=== PATIENT | female | born 1950 | race Caucasian/White ===

== ENCOUNTER 2017-12-02 09:58 | Emergency (ER) | payer MEDICARE ==
[2017-12-02 11:33] LABS: Hematocrit 33.6 % (30.3-42.9); Hemoglobin 10.8 gm/dl (10.1-14.3); Mean Corpuscular HGB Conc 32 % (30-34); Mean Corpuscular Hemoglobin 28 pg (28-32); Mean Corpuscular Volume 87 fl (79-97); Platelet Count 271 K/mm3 (140-440); Red Blood Count 3.86 M/mm3 (3.65-5.03); Red Cell Distribution Width 14.9 % (13.2-15.2)
[2017-12-02 11:41] LABS: BUN/Creatinine Ratio 15; Blood Urea Nitrogen 18 mg/dL (7-17); Calcium 9.5 mg/dL (8.4-10.2); Hemolysis Index 34
--- NOTE | 2017-12-02 12:23 | XRay Report ---
CHEST XRAY, 2 VIEWS: History: Short of breath. Findings: There is mild cardiomegaly. Pulmonary vessels are within normal limits. The lungs are clear and fully expanded. No infiltrate, pleural effusion or pneumothorax. Normal thoracic cage. IMPRESSION: Mild cardiomegaly.
[2017-12-02 13:32] LABS: Total Cells Counted 100
[2017-12-02 13:33] LABS: Large Platelets Few; Platelet Estimate Cons; RBC Morphology Normal
[2017-12-02] MEDS ORDERED: PROVENTIL IH ONE ×2 (15:34→16:27)
[2017-12-02] MEDS ORDERED: ATROVENT IH ONE (15:34)
[2017-12-02] MEDS ORDERED: DELTASONE PO ONE (15:35)
--- NOTE | 2017-12-02 16:41 | Emergency Department Report ---
ED Shortness of Breath HPI - General Chief Complaint: Dyspnea/Respdistress Stated Complaint: SHORTNESS OF BREATH Time Seen by Provider: 12/02/17 15:12 Source: patient, family, old records reviewed (patient had a cardiac cath done in 04/19 with normal coronary arteries and nonischemic cardiomyopathy with ejection fraction of less than 15%. Patient also had mild pulmonary hypertension) Mode of arrival: Ambulatory Limitations: Language Barrier - History of Present Illness Initial Comments: 67-year-old female with a past medical history CHF and hypertension presents to the hospital complaints of shortness of breath and chest tightness since last night. Patient states she feels tightness when she tries to take a deep breath. Mild productive cough reported without fever, calf tenderness, recent travel, history of PE/DVT, edema, nausea, vomiting, or diaphoresis. Patient obviously somewhat pillow but this nice had to sleep sitting up because she could not breathe lying flat. She has been compliant with all her medications including diuretics. Patient does not smoke cigarettes and denies history of previous lung disease. Her process improvement specialist is Dr. Garcia - Related Data Home Medications Medication Instructions Recorded Confirmed Last Taken Furosemide [Lasix TAB] 20 mg PO QDAY 04/03/15 04/03/15 Unknown Omeprazole [PriLOSEC] 40 mg PO QDAY 04/03/15 04/03/15 Unknown Previous Rx's Medication Instructions Recorded Last Taken Type Carvedilol [Coreg] 6.25 mg PO BID #60 tablet 04/08/15 Unknown Rx Furosemide [Lasix TAB] 20 mg PO QDAY #30 tablet 04/08/15 Unknown Rx Lisinopril [Zestril TAB] 10 mg PO QDAY #30 tablet 04/08/15 Unknown Rx Simvastatin [Zocor TAB] 20 mg PO QHS #30 tablet 04/08/15 Unknown Rx Zolpidem [Ambien] 5 mg PO QHS PRN #10 tablet 04/08/15 Unknown Rx ALBUTEROL Inhaler [ProAir HFA 2 puff IH QID PRN #1 inhalation 12/02/17 Unknown Rx Inhaler] Inhaler, Assist Devices [Space 1 each MC PRN #1 spacer 12/02/17 Unknown Rx Chamber Plus] Prednisone [predniSONE 10 mg 10 mg PO .TAPER #1 tab.ds.pk 12/02/17 Unknown Rx (6-Day Pack, 21 Tabs)] Allergies Allergy/AdvReac Type Severity Reaction Status Date / Time No Known Allergies Allergy Verified 12/02/17 10:36 ED Review of Systems ROS: Stated complaint: SHORTNESS OF BREATH Other details as noted in HPI Comment: All other systems reviewed and negative ED Past Medical Hx - Past Medical History Hx Hypertension: Yes Hx Congestive Heart Failure: Yes - Surgical History Past Surgical History?: No - Social History Smoking Status: Never Smoker Substance Use Type: None - Medications Home Medications: Home Medications Medication Instructions Recorded Confirmed Last Taken Type Furosemide [Lasix TAB] 20 mg PO QDAY 04/03/15 04/03/15 Unknown History Omeprazole [PriLOSEC] 40 mg PO QDAY 04/03/15 04/03/15 Unknown History Carvedilol [Coreg] 6.25 mg PO BID #60 tablet 04/08/15 Unknown Rx Furosemide [Lasix TAB] 20 mg PO QDAY #30 tablet 04/08/15 Unknown Rx Lisinopril [Zestril TAB] 10 mg PO QDAY #30 tablet 04/08/15 Unknown Rx Simvastatin [Zocor TAB] 20 mg PO QHS #30 tablet 04/08/15 Unknown Rx Zolpidem [Ambien] 5 mg PO QHS PRN #10 tablet 04/08/15 Unknown Rx ALBUTEROL Inhaler [ProAir HFA 2 puff IH QID PRN #1 inhalation 12/02/17 Unknown Rx Inhaler] Inhaler, Assist Devices [Space 1 each MC PRN #1 spacer 12/02/17 Unknown Rx Chamber Plus] Prednisone [predniSONE 10 mg 10 mg PO .TAPER #1 tab.ds.pk 12/02/17 Unknown Rx (6-Day Pack, 21 Tabs)] ED Physical Exam - General Limitations: Language Barrier - Other Other exam information: General: No limitations, patient is alert in no acute distress Head exam: Atraumatic, normocephalic Eyes exam: Normal appearance ENT: Moist mucous membrane, normal oropharynx Neck exam: Normal inspection, full range of motion, no meningismus nontender Respiratory exam: No tachypnea or accessory muscle use. Fair air movement expiratory wheezing Cardiovascular: Normal rate and rhythm, normal heart sounds Abdomen: Soft, nondistended, and nontender, with normal bowel sounds, no rebound, or guarding Extremity: Full range of motion normal inspection no deformity, no calf tenderness or edema Back: Normal Inspection, full range of motion, no tenderness Neurologic: Alert, oriented x3, cranial nerves intact, no motor or sensory deficit Psychiatric: normal affect, normal mood Skin: Warm, dry, intact ED Course Vital Signs 12/02/17 12/02/17 12/02/17 10:33 14:57 15:47 Temperature 97.8 F 97.5 F L Pulse Rate 66 67 Respiratory 20 20 Rate Blood Pressure 116/63 132/58 121/66 O2 Sat by Pulse 95 98 99 Oximetry 12/02/17 16:00 Temperature Pulse Rate Respiratory Rate Blood Pressure 118/56 O2 Sat by Pulse 100 Oximetry - Reevaluation(s) Reevaluation #1: 12/02/17 19:25 States she had a lot of improvement in her breathing after receiving albuterol 5 and Atrovent 1 mg. She also received prednisone 60 mg by mouth. Initial peak flow 225. After mentioned nebulized treatments he flow increased to 260. Additional 5 mg of albuterol provided with further improvement in her respiratory symptoms patient states she is feeling a lot better. Awaiting CT report at this time - Consultations Consultation #1: 12/02/17 17:[address] Gracia. Her process improvement specialist. He is very made with the patient and states that she does not have any known coronary artery disease and has a nonischemic cardiomyopathy 12/02/17 19:31 DR Garcia informed of CTA result and dispo plan. Will follow ED Medical Decision Making - Lab Data Result diagrams: 12/02/17 11:11 12/02/17 16:50 Lab Results 12/02/17 12/02/17 12/02/17 Range/Units 11:11 11:11 16:28 WBC 8.2 (4.5-11.0) K/mm3 RBC 3.86 (3.65-5.03) M/mm3 Hgb 10.8 (10.1-14.3) gm/dl Hct 33.6 (30.3-42.9) % MCV 87 (79-97) fl MCH 28 (28-32) pg MCHC 32 (30-34) % RDW 14.9 (13.2-15.2) % Plt Count 271 (140-440) K/mm3 Add Manual Diff Complete Total Counted 100 Seg Neuts % (Manual) 53.0 (40.0-70.0) % Band Neutrophils % 0 % Lymphocytes % (Manual) 21.0 (13.4-35.0) % Reactive Lymphs % (Man) 3.0 % Monocytes % (Manual) 3.0 (0.0-7.3) % Eosinophils % (Manual) 18.0 H (0.0-4.3) % Basophils % (Manual) 2.0 H (0.0-1.8) % Metamyelocytes % 0 % Myelocytes % 0 % Promyelocytes % 0 % Blast Cells % 0 % Nucleated RBC % 1.0 H (0.0-0.9) % Seg Neutrophils # Man 4.3 (1.8-7.7) K/mm3 Band Neutrophils # 0.0 K/mm3 Lymphocytes # (Manual) 1.7 (1.2-5.4) K/mm3 Abs React Lymphs (Man) 0.2 K/mm3 Monocytes # (Manual) 0.2 (0.0-0.8) K/mm3 Eosinophils # (Manual) 1.5 H (0.0-0.4) K/mm3 Basophils # (Manual) 0.2 H (0.0-0.1) K/mm3 Metamyelocytes # 0.0 K/mm3 Myelocytes # 0.0 K/mm3 Promyelocytes # 0.0 K/mm3 Blast Cells # 0.0 K/mm3 WBC Morphology Not Reportable Hypersegmented Neuts Not Reportable Hyposegmented Neuts Not Reportable Hypogranular Neuts Not Reportable Smudge Cells Not Reportable Toxic Granulation Not Reportable Toxic Vacuolation Not Reportable Dohle Bodies Not Reportable Pelger-Huet Anomaly Not Reportable Pal Rods Not Reportable Platelet Estimate Cons Clumped Platelets Not Reportable Plt Clumps, EDTA Not Reportable Large Platelets Few Giant Platelets Not Reportable Platelet Satelliting Not Reportable Plt Morphology Comment Not Reportable RBC Morphology Normal Dimorphic RBCs Not Reportable Polychromasia Not Reportable Hypochromasia Not Reportable Poikilocytosis Not Reportable Anisocytosis Not Reportable Microcytosis Not Reportable Macrocytosis Not Reportable Spherocytes Not Reportable Pappenheimer Bodies Not Reportable Sickle Cells Not Reportable Target Cells Not Reportable Tear Drop Cells Not Reportable Ovalocytes Not Reportable Helmet Cells Not Reportable Hernandez-[place] Bodies Not Reportable [place] Rings Not Reportable [place] Cells Not Reportable Bite Cells Not Reportable Crenated Cell Not Reportable Elliptocytes Not Reportable Acanthocytes (Spur) Not Reportable Rouleaux Not Reportable Hemoglobin C Crystals Not Reportable Schistocytes Not Reportable Malaria parasites Not Reportable David Bodies Not Reportable Hem Pathologist Commnt No D-Dimer (0-234) ng/mlDDU Sodium 140 (137-145) mmol/L Potassium 5.3 H (3.6-5.0) mmol/L Chloride 102.1 (98-107) mmol/L Carbon Dioxide 24 (22-30) mmol/L Anion Gap 19 mmol/L BUN 18 H (7-17) mg/dL Creatinine 1.2 (0.7-1.2) mg/dL Estimated GFR 45 ml/min BUN/Creatinine Ratio 15 % Glucose 140 H (65-100) mg/dL Calcium 9.5 (8.4-10.2) mg/dL Troponin T < 0.010 (0.00-0.029) ng/mL NT-Pro-B Natriuret Pep 143.8 (0-900) pg/mL 12/02/17 12/02/17 Range/Units 16:50 17:11 WBC (4.5-11.0) K/mm3 RBC (3.65-5.03) M/mm3 Hgb (10.1-14.3) gm/dl Hct (30.3-42.9) % MCV (79-97) fl MCH (28-32) pg MCHC (30-34) % RDW (13.2-15.2) % Plt Count (140-440) K/mm3 Add Manual Diff Total Counted Seg Neuts % (Manual) (40.0-70.0) % Band Neutrophils % % Lymphocytes % (Manual) (13.4-35.0) % Reactive Lymphs % (Man) % Monocytes % (Manual) (0.0-7.3) % Eosinophils % (Manual) (0.0-4.3) % Basophils % (Manual) (0.0-1.8) % Metamyelocytes % % Myelocytes % % Promyelocytes % % Blast Cells % % Nucleated RBC % (0.0-0.9) % Seg Neutrophils # Man (1.8-7.7) K/mm3 Band Neutrophils # K/mm3 Lymphocytes # (Manual) (1.2-5.4) K/mm3 Abs React Lymphs (Man) K/mm3 Monocytes # (Manual) (0.0-0.8) K/mm3 Eosinophils # (Manual) (0.0-0.4) K/mm3 Basophils # (Manual) (0.0-0.1) K/mm3 Metamyelocytes # K/mm3 Myelocytes # K/mm3 Promyelocytes # K/mm3 Blast Cells # K/mm3 WBC Morphology Hypersegmented Neuts Hyposegmented Neuts Hypogranular Neuts Smudge Cells Toxic Granulation Toxic Vacuolation Dohle Bodies Pelger-Huet Anomaly Pal Rods Platelet Estimate Clumped Platelets Plt Clumps, EDTA Large Platelets Giant Platelets Platelet Satelliting Plt Morphology Comment RBC Morphology Dimorphic RBCs Polychromasia Hypochromasia Poikilocytosis Anisocytosis Microcytosis Macrocytosis Spherocytes Pappenheimer Bodies Sickle Cells Target Cells Tear Drop Cells Ovalocytes Helmet Cells Hernandez-Congers Bodies [place] Rings Kristopher Cells Bite Cells Crenated Cell Elliptocytes Acanthocytes (Spur) Rouleaux Hemoglobin C Crystals Schistocytes Malaria parasites David Bodies Hem Pathologist Commnt D-Dimer 640.96 H (0-234) ng/mlDDU Sodium (137-145) mmol/L Potassium 4.6 (3.6-5.0) mmol/L Chloride (98-107) mmol/L Carbon Dioxide (22-30) mmol/L Anion Gap mmol/L BUN (7-17) mg/dL Creatinine (0.7-1.2) mg/dL Estimated GFR ml/min BUN/Creatinine Ratio % Glucose (65-100) mg/dL Calcium (8.4-10.2) mg/dL Troponin T < 0.010 (0.00-0.029) ng/mL NT-Pro-B Natriuret Pep (0-900) pg/mL - EKG Data -: EKG Interpreted by Me EKG shows normal: sinus rhythm, axis (qrs 43), QRS complexes (qrsd 92), ST-T waves (no stemi/t inv) Rate: normal (63) - EKG Data When compared to previous EKG there are: no significant change - Radiology Data Radiology results: report reviewed CHEST XRAY, 2 VIEWS: History: Short of breath. Findings: There is mild cardiomegaly. Pulmonary vessels are within normal limits. The lungs are clear and fully expanded. No infiltrate, pleural effusion or pneumothorax. Normal thoracic cage. IMPRESSION: Mild cardiomegaly. FINDINGS: There is no evidence for pulmonary embolism in the main pulmonary artery, right and left pulmonary arteries or their major distributions. However, CT does not exclude distal pulmonary emboli. There is a 3.5 mm nodule in the lateral right upper lobe (axial image 47). Otherwise, the lung parenchyma are expanded and clear with no evidence for parenchymal infiltrates, congestion, or pleural effusion. There is no evidence for mediastinal, hilar, or axillary adenopathy. Cardiovascular structures are within normal limits. No evidence for ventricular chamber enlargement is seen. Images through the lung bases include the upper abdomen which show no abnormalities of the visualized abdominal viscera. Bony structures demonstrate no focal abnormalities. IMPRESSION: 1. no evidence for pulmonary embolism. 2. tiny nodule in the lateral right upper lobe which can be followed according to Fleischner criteria below - Medical Decision Making Patient has improvement in symptoms after receiving nebulized treatments and steroids. Wheezing has decreased. CT angiogram does not show any acute findings but she does have a pulmonary nodule and needs follow-up. Her process improvement specialist Dr. Garcia informed the patient will be discharged home with nebs and steroids and follow-up recommended Mild hyperkalemia improved with nebs. She does take diuretics but does not take potassium supplements. - Differential Diagnosis COPD, CHF, bronchitis, VT, PE Critical Care Time: No Critical care attestation.: If time is entered above; I have spent that time in minutes in the direct care of this critically ill patient, excluding procedure time. ED Disposition Clinical Impression: Acute bronchitis, Incidental lung nodule, > 3mm and < 8mm Disposition: DC-01 TO HOME OR SELFCARE Is pt being admited?: No Does the pt Need Aspirin: No Condition: Stable Instructions: Acute Bronchitis (ED) Additional Instructions: Take the medication as prescribed. Follow-up with your primary care doctor and process improvement specialist. The CAT scan shows a very small lung nodule that needs outpatient follow-up. Return if symptoms worsen as indicated by your discharge instructions Prescriptions: ALBUTEROL Inhaler [ProAir HFA Inhaler] 2 puff IH QID PRN #1 inhalation PRN Reason: Shortness Of Breath Inhaler, Assist Devices [Space Chamber Plus] 1 each MC PRN #1 spacer Prednisone [predniSONE 10 mg (6-Day Pack, 21 Tabs)] 10 mg PO .TAPER #1 tab.ds.pk Referrals: KAVEH NEVAREZ MD [Primary Care Provider] - 3-5 Days SHANTEL GARCIA MD [Staff Physician] - 3-5 Days Time of Disposition: 19:37
--- NOTE | 2017-12-02 19:30 | Cat Scan Report ---
FINAL REPORT EXAM: CT ANGIO CHEST HISTORY: SOB, elevated D-dimer TECHNIQUE: Enhanced CT of the chest at 2.5 mm axial intervals following a pulmonary embolism protocol. Coronal and sagittal imaging were also obtained. Coronal oblique MIP projections were obtained. Contrast: 100 ml of Omnipaque 350 given IV. PRIORS: None. FINDINGS: There is no evidence for pulmonary embolism in the main pulmonary artery, right and left pulmonary arteries or their major distributions. However, CT does not exclude distal pulmonary emboli. There is a 3.5 mm nodule in the lateral right upper lobe (axial image 47). Otherwise, the lung parenchyma are expanded and clear with no evidence for parenchymal infiltrates, congestion, or pleural effusion. There is no evidence for mediastinal, hilar, or axillary adenopathy. Cardiovascular structures are within normal limits. No evidence for ventricular chamber enlargement is seen. Images through the lung bases include the upper abdomen which show no abnormalities of the visualized abdominal viscera. Bony structures demonstrate no focal abnormalities. IMPRESSION: 1. no evidence for pulmonary embolism. 2. tiny nodule in the lateral right upper lobe which can be followed according to Fleischner criteria below FLEISCHNER SOCI[employer]Y GUIDELINES FOR MANAGEMENT OF SMALL PULMONARY NODULES DETECTED ON CT SCANS- Nodule Size Low Risk High Risk (mm) < 4 No F/U F/U CT 12 mos if unchanged no further F/U Note- Newly detected indeterminate nodule in persons 35 years or older Low-risk patient = Minimal or absent history of smoking and of other known risk factors High risk patient = History of smoking or other known risk factors
[2017-12-02 19:56] VITALS: BP 134/66
== END 2017-12-02 19:55 | disposition home or self-care (01) ==
LOC: ED 09:58
DX: J20.9 Acute bronchitis, unspecified (principal); J98.4 Other disorders of lung; I11.0 Hypertensive heart disease with heart failure; I50.9 Heart failure, unspecified
CPT/HCPCS: 36415; 71046; 71275; 80048; 83880; 84132; 84484; 85007; 85025; 85379; 93005; 93010; 94640; 99285; J7512; Q9967

== ENCOUNTER 2017-12-21 19:56 | Emergency (ER) | payer MEDICARE ==
[2017-12-21] MEDS ORDERED: PROVENTIL IH ONE ×4 (20:36→22:55)
[2017-12-21] MEDS ORDERED: ATROVENT IH ONE ×2 (20:37→20:49)
[2017-12-21] MEDS ORDERED: MAGNESIUM SULFATE 2GM/50ML 2 GM/50 ML BAG IV ONE (20:59)
[2017-12-21] MEDS ORDERED: SOLU-Medrol IV ONE (20:59)
--- NOTE | 2017-12-21 20:59 | Emergency Department Report ---
ED Shortness of Breath HPI - General Chief Complaint: Dyspnea/Respdistress Stated Complaint: RICO Time Seen by Provider: 12/21/17 20:16 Source: patient, family, RN notes reviewed Mode of arrival: Stretcher Limitations: Language Barrier - History of Present Illness Initial Comments: Patient declines formal bushwalking guide. Patient requested that her daughter translate for her. 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 Koch This is a 67-year-old female. The patient presents to the ER with cough, wheezing and shortness of breath. It started at 1:00. She is not making more definitive mucus. She is also experiencing epigastric discomfort with coughing. The epigastric discomfort has been on and off for the past few days. The patient and her daughter deny DVT, pulmonary embolus risk factors. The patient was seen at this hospital/emergency room last month for similar symptoms , and had an essentially negative CT and a gram of the chest for large pulmonary emboli. Patient denies lower extremity swelling, and dietary indiscretions. MD Complaint: shortness of breath, cough -: Gradual Improves With: rest, upright position Worsens With: lying flat, exertion Known History Of: COPD, congestive heart failure Treatments Prior to Arrival: none - Related Data Home Oxygen Therapy: No Home Medications Medication Instructions Recorded Confirmed Last Taken Furosemide [Lasix TAB] 20 mg PO QDAY 04/03/15 04/03/15 Unknown Omeprazole [PriLOSEC] 40 mg PO QDAY 04/03/15 04/03/15 Unknown Previous Rx's Medication Instructions Recorded Last Taken Type Carvedilol [Coreg] 6.25 mg PO BID #60 tablet 04/08/15 Unknown Rx Furosemide [Lasix TAB] 20 mg PO QDAY #30 tablet 04/08/15 Unknown Rx Lisinopril [Zestril TAB] 10 mg PO QDAY #30 tablet 04/08/15 Unknown Rx Simvastatin [Zocor TAB] 20 mg PO QHS #30 tablet 04/08/15 Unknown Rx Zolpidem [Ambien] 5 mg PO QHS PRN #10 tablet 04/08/15 Unknown Rx ALBUTEROL Inhaler [ProAir HFA 2 puff IH QID PRN #1 inhalation 12/02/17 Unknown Rx Inhaler] Inhaler, Assist Devices [Space 1 each MC PRN #1 spacer 12/02/17 Unknown Rx Chamber Plus] Prednisone [predniSONE 10 mg 10 mg PO .TAPER #1 tab.ds.pk 12/02/17 Unknown Rx (6-Day Pack, 21 Tabs)] Albuterol Sulfate [Albuterol 0.63% 0.63 mg IH Q4HR PRN #2 ml 12/21/17 Unknown Rx NEBS] Albuterol Sulfate [Proair 90 mcg IH Q4HR PRN #2 aer.pow.ba 12/21/17 Unknown Rx Respiclick] Ipratropium [place] [Atrovent Hfa] 12.9 gm IH Q4HR #2 hfa.aer.ad 12/21/17 Unknown Rx Ipratropium [Atrovent NEB] 0.5 mg IH Q4HR #2 ml 12/21/17 Unknown Rx predniSONE [Deltasone] 40 mg PO QDAY #8 tab 12/21/17 Unknown Rx Allergies Allergy/AdvReac Type Severity Reaction Status Date / Time No Known Allergies Allergy Verified 12/02/17 10:36 ED Review of Systems ROS: Stated complaint: RICO Other details as noted in HPI Constitutional: denies: fever Eyes: denies: eye discharge Respiratory: see HPI, shortness of breath, wheezing Cardiovascular: denies: chest pain Gastrointestinal: denies: vomiting Genitourinary: as per HPI Musculoskeletal: as per HPI Skin: as per HPI Neurological: as per HPI Psychiatric: as per HPI ED Past Medical Hx - Past Medical History Hx Hypertension: Yes Hx Congestive Heart Failure: Yes Hx COPD: Yes Additional medical history: Cardiomyopathy - Surgical History Past Surgical History?: No - Social History Smoking Status: Former Smoker Substance Use Type: None - Medications Home Medications: Home Medications Medication Instructions Recorded Confirmed Last Taken Type Furosemide [Lasix TAB] 20 mg PO QDAY 04/03/15 04/03/15 Unknown History Omeprazole [PriLOSEC] 40 mg PO QDAY 04/03/15 04/03/15 Unknown History Carvedilol [Coreg] 6.25 mg PO BID #60 tablet 04/08/15 Unknown Rx Furosemide [Lasix TAB] 20 mg PO QDAY #30 tablet 04/08/15 Unknown Rx Lisinopril [Zestril TAB] 10 mg PO QDAY #30 tablet 04/08/15 Unknown Rx Simvastatin [Zocor TAB] 20 mg PO QHS #30 tablet 04/08/15 Unknown Rx Zolpidem [Ambien] 5 mg PO QHS PRN #10 tablet 04/08/15 Unknown Rx ALBUTEROL Inhaler [ProAir HFA 2 puff IH QID PRN #1 inhalation 12/02/17 Unknown Rx Inhaler] Inhaler, Assist Devices [Space 1 each MC PRN #1 spacer 12/02/17 Unknown Rx Chamber Plus] Prednisone [predniSONE 10 mg 10 mg PO .TAPER #1 tab.ds.pk 12/02/17 Unknown Rx (6-Day Pack, 21 Tabs)] Albuterol Sulfate [Albuterol 0.63% 0.63 mg IH Q4HR PRN #2 ml 12/21/17 Unknown Rx NEBS] Albuterol Sulfate [Proair 90 mcg IH Q4HR PRN #2 aer.pow.ba 12/21/17 Unknown Rx Respiclick] Ipratropium [place] [Atrovent Hfa] 12.9 gm IH Q4HR #2 hfa.aer.ad 12/21/17 Unknown Rx Ipratropium [Atrovent NEB] 0.5 mg IH Q4HR #2 ml 12/21/17 Unknown Rx predniSONE [Deltasone] 40 mg PO QDAY #8 tab 12/21/17 Unknown Rx ED Physical Exam - General Limitations: Language Barrier General appearance: alert, in no apparent distress - Head Head exam: Present: atraumatic, normocephalic - Eye Eye exam: Present: normal appearance - ENT ENT exam: Present: normal exam, normal orophraynx, mucous membranes moist, normal external ear exam - Neck Neck exam: Present: normal inspection, full ROM. Absent: tenderness, meningismus - Respiratory Respiratory exam: Present: respiratory distress, wheezes, rhonchi - Cardiovascular Cardiovascular Exam: Present: regular rate, normal rhythm, normal heart sounds. Absent: bradycardia, tachycardia, irregular rhythm, systolic murmur, diastolic murmur, rubs, gallop - GI/Abdominal GI/Abdominal exam: Present: soft, normal bowel sounds. Absent: distended, tenderness, guarding, rebound, rigid, pulsatile mass - Extremities Exam Extremities exam: Present: normal inspection, full ROM, normal capillary refill. Absent: tenderness, pedal edema, joint swelling, calf tenderness - Back Exam Back exam: Present: normal inspection, full ROM. Absent: tenderness, CVA tenderness (R), paraspinal tenderness, vertebral tenderness - Neurological Exam Neurological exam: Present: alert, other (there is no facial droop. Extraocular movements are intact. The tongue is midline. The patient speaks in full sentences. There is no stridor. Hearing appears to be intact. 5 out of 5 strength upper, lower extremities) - Psychiatric Psychiatric exam: Present: anxious - Skin Skin exam: Present: warm, dry, intact, normal color. Absent: rash ED Course Vital Signs 12/21/17 12/21/17 12/21/17 20:17 20:25 20:30 Temperature 98.2 F Pulse Rate 68 67 Pulse Rate [ Anterior Bilateral Throughout] Respiratory 14 22 19 Rate Respiratory Rate [Anterior Bilateral Throughout] Blood Pressure 107/46 108/55 Blood Pressure 107/46 [Right] O2 Sat by Pulse 98 95 Oximetry 12/21/17 12/21/17 12/21/17 20:45 20:50 20:56 Temperature Pulse Rate 69 Pulse Rate [ 66 Anterior Bilateral Throughout] Respiratory 17 22 Rate Respiratory 20 Rate [Anterior Bilateral Throughout] Blood Pressure 108/55 Blood Pressure [Right] O2 Sat by Pulse 95 98 Oximetry 12/21/17 12/21/17 12/21/17 21:01 21:30 21:36 Temperature Pulse Rate 67 70 Pulse Rate [ 72 Anterior Bilateral Throughout] Respiratory 17 17 Rate Respiratory 16 Rate [Anterior Bilateral Throughout] Blood Pressure 105/57 127/68 Blood Pressure [Right] O2 Sat by Pulse 95 97 Oximetry 12/21/17 12/21/17 12/21/17 22:31 22:55 23:00 Temperature Pulse Rate 66 83 Pulse Rate [ 74 Anterior Bilateral Throughout] Respiratory 15 21 Rate Respiratory 22 Rate [Anterior Bilateral Throughout] Blood Pressure 127/68 147/65 Blood Pressure [Right] O2 Sat by Pulse 94 97 Oximetry 12/21/17 12/21/17 23:13 23:16 Temperature Pulse Rate Pulse Rate [ 80 Anterior Bilateral Throughout] Respiratory 15 Rate Respiratory 17 Rate [Anterior Bilateral Throughout] Blood Pressure Blood Pressure [Right] O2 Sat by Pulse 99 Oximetry - Reevaluation(s) Reevaluation #1: 12/21/17 21:20 Differential diagnosis, including but not limited to: Congestive heart failure, pulmonary hypertension, COPD, bronchitis, pneumonia Assessment and plan: 67-year-old female with cough, wheezing, rhonchi, epigastric discomfort for a few days. She was here for similar presentation last month. She'll be treated empirically with albuterol, Atrovent, steroids, magnesium, laboratory studies pending, x-ray of the chest is pending. Based on the history, low risk by Heart's score. We will reassess after her initial therapies Reevaluation #2: 12/21/17 22:44 Patient is reassessed. She is sleeping. She indicates that she feels better. She is still wheezing. She requests another breathing treatment or she does. It is ordered. She indicates to her daughter that she feels like she can go home. Reevaluation #3: 12/21/17 23:57 Feeling improved. Able to walk without significant desaturation. Will be discharged. ED Medical Decision Making - Lab Data Result diagrams: 12/21/17 21:26 12/21/17 21:26 Vital Signs 12/21/17 12/21/17 12/21/17 20:17 20:25 20:30 Temperature 98.2 F Pulse Rate 68 67 Pulse Rate [ Anterior Bilateral Throughout] Respiratory 14 22 19 Rate Respiratory Rate [Anterior Bilateral Throughout] Blood Pressure 107/46 108/55 Blood Pressure 107/46 [Right] O2 Sat by Pulse 98 95 Oximetry 12/21/17 12/21/17 12/21/17 20:45 20:50 20:56 Temperature Pulse Rate 69 Pulse Rate [ 66 Anterior Bilateral Throughout] Respiratory 17 22 Rate Respiratory 20 Rate [Anterior Bilateral Throughout] Blood Pressure 108/55 Blood Pressure [Right] O2 Sat by Pulse 95 98 Oximetry - EKG Data 12/21/17 21:21 Normal sinus, 66 bpm, normal axis, PA interval prolonged, high left ventricular voltage, nonspecific ST abnormality in the inferior leads, abnormal EKG, poor R- wave progression, nondistended, unchanged from prior from 12/02/2017 12/21/17 23:13 EKG #2 was unchanged from prior. - Radiology Data Radiology results: report reviewed, image reviewed x-ray of the chest is negative for acute disease Critical care attestation.: If time is entered above; I have spent that time in minutes in the direct care of this critically ill patient, excluding procedure time. ED Disposition Clinical Impression: Reactive airway disease Disposition: DC-01 TO HOME OR SELFCARE Is pt being admited?: No Does the pt Need Aspirin: No Condition: Good Instructions: Chronic Obstructive Pulmonary Disease (ED) Additional Instructions: Take medications as directed. Follow up with the primary care doctor, senior database programmer to migration specialist within the next week for recheck/ evaluation. Return to the ER right away with any pain, worsening pain, migration of pain, projectile vomiting, change in mental status, confusion, inability to tolerate liquid feeds. Referrals: PRIMARY CARE, [Primary Care Provider] - 3-5 Days SHANTEL KOCH MD [Staff Physician] - 3-5 Days UVALDO ZABALA MD [Staff Physician] - 3-5 Days KARTHIK ZULUAGA MD [Staff Physician] - 3-5 Days
[2017-12-21 21:34] LABS: Hematocrit 29.1 % (30.3-42.9); Hemoglobin 9.8 gm/dl (10.1-14.3); Mean Corpuscular HGB Conc 34 % (30-34); Mean Corpuscular Hemoglobin 29 pg (28-32); Mean Corpuscular Volume 86 fl (79-97); Platelet Count 237 K/mm3 (140-440); Red Blood Count 3.38 M/mm3 (3.65-5.03); Red Cell Distribution Width 14.3 % (13.2-15.2)
[2017-12-21 21:46] LABS: INR 0.86 (0.87-1.13)
[2017-12-21 21:47] LABS: Partial Thromboplastin Time 21.9 Sec. (24.2-36.6)
[2017-12-21 21:49] LABS: BUN/Creatinine Ratio 15; Blood Urea Nitrogen 20 mg/dL (7-17); Calcium 8.4 mg/dL (8.4-10.2); Hemolysis Index 6
[2017-12-21] MEDS ORDERED: DUONEB *Not for PRN Use IH ONE ×2 (22:50→22:54)
--- NOTE | 2017-12-21 22:57 | XRay Report ---
FINAL REPORT EXAM: XR CHEST ROUTINE 2V HISTORY: SOB TECHNIQUE: PA and lateral views of the chest PRIORS: CT chest 12/02/2017 FINDINGS: Lines, tubes, and devices: N/A Lungs and pleura: Trachea is normal in position. Lungs are clear of infiltrate, pleural effusion, vascular congestion, or pneumothorax. Cardiomediastinal silhouette: Cardiac silhouette is enlarged. Other: Bony structures are intact. IMPRESSION: No acute cardiopulmonary process seen. cardiomegaly.
[2017-12-22 00:32] VITALS: BP 113/51
== END 2017-12-22 00:32 | disposition home or self-care (01) ==
LOC: ED 19:56
DX: J44.9 Chronic obstructive pulmonary disease, unspecified (principal); I10 Essential (primary) hypertension
CPT/HCPCS: 36415; 71046; 80048; 83735; 83880; 84484; 85027; 85610; 85730; 93005; 93010; 94644; 94645; 96365; 96375; 99285; J2930; J3475

== ENCOUNTER 2021-05-30 13:11 | Outpatient (CLI) | payer MEDICARE ==
--- NOTE | 2021-05-31 11:05 | Mammography Report ---
DIGITAL SCREENING MAMMOGRAM WITH CAD, 05/30/2021 CLINICAL INFORMATION / INDICATION: Routine screening mammography. TECHNIQUE: Digital bilateral 2D mammography was obtained in the craniocaudal and mediolateral obliqu e projections. This examination was interpreted with the benefit of Computer-Aided Detection analysis . COMPARISON: None available FINDINGS: Breast Density: The breasts are almost entirely fatty. No dominant mass, suspicious calcifications, or architectural distortion in either breast. IMPRESSION: No mammographic evidence of malignancy. Follow up recommendation: Routine yearly BI-RADS Category 1: NEGATIVE A "normal" or negative report should not discourage follow up or biopsy of a clinically significant f inding. A written summary of these findings will be mailed to the patient. The patient will be entered into a mammography reporting system which will generate a reminder letter for the patient's next appointmen t at the appropriate interval. [employer] recommends yearly mammograms starting at age 40 and continuing as l shanna as a woman is in good health. Breast MRI is recommended for women with an approximate 20-25% or greater lifetime risk of breast cancer, including women with a strong family history of breast or ova irvin cancer or who have been treated for Hodgkin's disease. Signer Name: Dulce Hernandez MD Signed: 05/31/2021 11:01 AM Workstation Name: [employer]
== END 2021-05-30 13:12 | disposition home or self-care (01) ==
LOC: MAMMO 13:11
PROVIDERS: ATTEND Internal Medicine Hematology & Oncology
DX: Z12.31 Encounter for screening mammogram for malignant neoplasm of breast (principal)
CPT/HCPCS: 77067